=== PATIENT | male | born 1950 | race Caucasian/White ===

== ENCOUNTER 2018-06-14 11:23 | Emergency (ER) | payer BC, OTHER ==
[2018-06-14 11:47] VITALS: BP 149/89
--- NOTE | 2018-06-14 12:12 | UC ---
Lower Extremity/Ankle HPI - HPI Summary HPI Summary: The patient is a 67-year-old male that underwent robotic surgery for his prostate at [facility] on May 07, 2018. When he awoke from surgery his right foot was red and swollen. It is remained red and swollen since the surgery. He denies any calf pain or swelling. He recently clipped his nails and his right great toe is markedly redder than before. He has a history of a crushing injury to his right foot in the mid to early 70s. He has no history of gout. He states his foot does not hurt. - History of Current Complaint Chief Complaint: UCLowerExtremity Stated Complaint: TOE PAIN Time Seen by Provider: 06/14/18 12:00 Hx Obtained From: Patient Onset/Duration: Sudden Onset, Lasting Weeks - 5 to 6 Severity Currently: Severe Pain Intensity: 0 Pain Scale Used: 0-10 Numeric Aggravating Factor(s): Standing, Ambulation Feet (Multiple View): 1 - red/swollen from mid foot to toes, pes planus, hallux valgus - Allergies/Home Medications Allergies/Adverse Reactions: Allergies Allergy/AdvReac Type Severity Reaction Status Date / Time No Known Allergies Allergy Verified 06/14/18 11:47 PMH/Surg Hx/FS Hx/Imm Hx Previously Healthy: Yes - Surgical History Surgical History: Yes Surgery Procedure, Year, and Place: prostate - Family History Known Family History: Positive: Hypertension - Social History Alcohol Use: None Substance Use Type: None Smoking Status (MU): Former Smoker Review of Systems All Other Systems Reviewed And Are Negative: Yes Constitutional: Positive: Negative Skin: Positive: Negative Eyes: Positive: Negative ENT: Positive: Negative Respiratory: Positive: Negative Cardiovascular: Positive: Negative Gastrointestinal: Positive: Negative Genitourinary: Positive: Negative Motor: Positive: Negative Neurovascular: Positive: Negative Musculoskeletal: Positive: Arthralgia, Edema Neurological: Positive: Negative Psychological: Positive: Negative Physical Exam Triage Information Reviewed: Yes Appearance: Well-Appearing, No Pain Distress, Well-Nourished Vital Signs: Initial Vital Signs Temp 98.4 F 06/14/18 11:43 Pulse 87 06/14/18 11:43 Resp 17 06/14/18 11:43 BP 149/89 06/14/18 11:43 Pulse Ox 99 06/14/18 11:43 Vital Signs Reviewed: Yes Eyes: Positive: Conjunctiva Clear ENT: Positive: Hearing grossly normal. Negative: Nasal congestion, Nasal drainage, Muffled voice, Hoarse voice Neck: Positive: Supple, Nontender, No Lymphadenopathy Respiratory: Positive: Lungs clear, Normal breath sounds, No respiratory distress Cardiovascular: Positive: RRR, No Murmur, Pulses Normal Musculoskeletal: Positive: Other: - see image Psychological Exam: Normal Skin Exam: Other - see image Diagnostics - Radiology No standard instances Radiology Interpretation Completed By: Radiologist Summary of Radiographic Findings: #. No radiographic evidence for osteomyelitis. If there is persistent clinical concern. consider MRI or in setting of contraindication to MRI 3 phase bone scan for further. assessment. #. 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 Severe hallux valgus. deformity Lower Extremity Course/Dx - Differential Dx/Diagnosis Provider Diagnosis: Cellulitis of right foot, Arthropathy of right foot Discharge - Sign-Out/Discharge Documenting (check all that apply): Patient Departure All imaging exams completed and their final reports reviewed: Yes - Discharge Plan Condition: Stable Disposition: HOME Prescriptions: Cephalexin CAP* [Keflex CAP*] 500 mg PO QID #28 cap Patient Education Materials: Cellulitis (ED) Referrals: Js Garcia MD [Primary Care Provider] - 3 Days (recheck in 3-4 days) Additional Instructions: if not improving you will need further investigation of your symptoms TO ER FOR NEW OR WORSENING SYMPTOMS - Billing Disposition and Condition Condition: STABLE Disposition: Home
== END 2018-06-14 13:00 | disposition home or self-care (01) ==
LOC: UCEAST 11:23
DX: L03.115 Cellulitis of right lower limb (principal); M12.9 Arthropathy, unspecified; Z87.891 Personal history of nicotine dependence
CPT/HCPCS: 99202; G0463

== ENCOUNTER 2023-12-20 13:28 | Observation (INO) ==
[2023-12-20 14:26] LABS: ABS Lymphocytes 0.6 10^3/uL (1.0-4.8); ABS Monocytes 0.6 10^3/uL (0.0-1.1); ABS Neutrophils 5.2 10^3/uL (1.5-7.6); Eosinophil % 0.1 %; Hematocrit 38.5 % (38-53); Lymphocyte % 9.6 %; Mean Corpuscular Hemoglobin 29.9 pg (27-33); Mean Corpuscular Hgb Conc 33.7 g/dL (31-36); Mean Corpuscular Volume 88.7 fL (80-97); Mean Platelet Volume 8.2 fL (7.5-11.2); Platelet Count 290 10^3/uL (150-450); Red Blood Count 4.34 10^6/uL (4.06-5.63); Red Cell Distribution Width 18.2 % (12-17); White Blood Count 6.5 10^3/uL (3.6-10.2)
[2023-12-20] MEDS: Lactated Ringers 1000 ml BAG 1,000 ML IV ONE (15:14)
[2023-12-20 15:32] LABS: Albumin 3.4 g/dL (3.2-5.2); Albumin/Globulin Ratio 1.2 (1-3); Calcium 9.2 mg/dL (8.6-10.3); Creatinine, Serum 0.72 mg/dL (0.67-1.17); Globulin 2.8 g/dL (2-4); Magnesium 1.6 mg/dL (1.9-2.7); Potassium 4.1 mmol/L (3.5-5.0); Total Protein 6.2 g/dL (6.4-8.9); eGFR CKD-EPI 96.5 (>60)
[2023-12-20] MEDS: Acetaminophen IV 1 GM/100ML 1,000 MG/100 ML BAG IV ONE (15:41)
[2023-12-20 15:52] LABS: High Sensitivity Troponin 1 Hr 61 pg/mL (<20)
[2023-12-20] MEDS: Iohexol 350 (CONTRAST) 500 ML MDV IV ONE (17:07)
[2023-12-20] MEDS: Metoprolol Tartrate 5 mg VIAL 5 ml VIAL (1 mg/ml) IV ONE (18:00)
[2023-12-20] MEDS: Furosemide 20 mg/2 ml IV VIAL IV SLOW PU ONE (20:03)
[2023-12-21] MEDS: Magnesium Sulfate 2 gm BAG 2 GM/50 ML BAG IVPB ONE (01:11)
[2023-12-21 03:19] LABS: INR 1.2 (0.83-1.13)
[2023-12-21 03:29] LABS: ABS Lymphocytes 1.4 10^3/uL (1.0-4.8); ABS Monocytes 0.8 10^3/uL (0.0-1.1); ABS Neutrophils 4.9 10^3/uL (1.5-7.6); ABS Nucleated RBC 0.01 10^3/ul; Eosinophil % 0.2 %; Hematocrit 36.9 % (38-53); Hemoglobin 12.8 g/dL (13.2-16.3); Lymphocyte % 19.4 %; Mean Corpuscular Hemoglobin 30.4 pg (27-33); Mean Corpuscular Hgb Conc 34.6 g/dL (31-36); Mean Corpuscular Volume 87.9 fL (80-97); Mean Platelet Volume 8.5 fL (7.5-11.2); Nucleated Red Blood Cells % 0.2 %/100WBC (0.0-0.8); Platelet Count 299 10^3/uL (150-450); Red Blood Count 4.19 10^6/uL (4.06-5.63); White Blood Count 7.1 10^3/uL (3.6-10.2)
[2023-12-21 03:32] LABS: Albumin 3.6 g/dL (3.2-5.2); Albumin/Globulin Ratio 1.4 (1-3); Calcium 9.4 mg/dL (8.6-10.3); Creatinine, Serum 0.85 mg/dL (0.67-1.17); Globulin 2.6 g/dL (2-4); Magnesium 2.3 mg/dL (1.9-2.7); Potassium 3.7 mmol/L (3.5-5.0); Total Bilirubin 1.1 mg/dL (0.2-1.0); Total Protein 6.2 g/dL (6.4-8.9); eGFR CKD-EPI 91.8 (>60)
[2023-12-21] MEDS: Remdesivir 100 mg Vial 200 MG in NS 0.9% 250 ml 210 ML IV ONE (03:34)
[2023-12-21] MEDS: Lactated Ringers 1000 ml BAG 1,000 ML IV SCH (04:54)
[2023-12-21 06:30] LABS: ABS Lymphocytes 1.1 10^3/uL (1.0-4.8); ABS Monocytes 0.7 10^3/uL (0.0-1.1); ABS Neutrophils 3.9 10^3/uL (1.5-7.6); Eosinophil % 0.3 %; Hematocrit 35.4 % (38-53); Lymphocyte % 19.3 %; Mean Corpuscular Hemoglobin 29.7 pg (27-33); Mean Corpuscular Hgb Conc 33.8 g/dL (31-36); Mean Corpuscular Volume 87.9 fL (80-97); Platelet Count 257 10^3/uL (150-450); Red Blood Count 4.03 10^6/uL (4.06-5.63); Red Cell Distribution Width 17.9 % (12-17); White Blood Count 5.8 10^3/uL (3.6-10.2)
[2023-12-21 06:52] LABS: Calcium 8.8 mg/dL (8.6-10.3); Creatinine, Serum 0.79 mg/dL (0.67-1.17); Potassium 3.4 mmol/L (3.5-5.0); eGFR CKD-EPI 93.8 (>60)
[2023-12-21] MEDS: Nirmatrelvir/Ritonavir 300 mg/100 mg (eGFR > 60) 1 Dose Blister Card PO SCH (07:55)
[2023-12-21] MEDS ORDERED: PROPRANOLOL 160 MG PO SCH (09:00)
[2023-12-21] MEDS ORDERED: Metoprolol Tartrate 5 mg VIAL 5 ml VIAL (1 mg/ml) IV PRN (09:40)
[2023-12-21] MEDS: ABIRATERONE 500 MG PO SCH (10:39)
[2023-12-21] MEDS: Metoprolol Tartrate 5 mg VIAL 5 ml VIAL (1 mg/ml) IV ONE (11:33)
[2023-12-21] MEDS: Acetaminophen IV 1 GM/100ML 1,000 MG/100 ML BAG IV PRN (13:12)
[2023-12-21 14:28] VITALS: BP 101/63
[2023-12-21 15:02] LABS: PSA Screen Ultra Sensitive 0.812 ng/mL (0-4.000)
[2023-12-21 15:07] LABS: Carcinoembryonic Antigen 869.6 ng/mL (0.1-5.0)
[2023-12-21] MEDS: Potassium Chlor 20 meq TAB.ER PO ONE (17:12)
[2023-12-22] MEDS ORDERED: Remdesivir 100 mg Vial 100 MG in NS 0.9% 250 ml 230 ML IV SCH (09:00)
== END 2023-12-21 17:35 | disposition home or self-care (01) ==
LOC: ED 13:28 → EDHOLD 13:28 → SUATTDRO 23:59 → MEDTELE 12-21 01:12
PROVIDERS: ADMIT Internal Medicine; ATTEND Student in an Organized Health Care Education/Training Program

== ENCOUNTER 2024-01-03 10:24 | Inpatient (IN) ==
[2024-01-03] MEDS: Lactated Ringers 1000 ml BAG 1,000 ML IV ONE (10:51)
[2024-01-03 11:07] LABS: Hematocrit 36.8 % (38-53); Hemoglobin 12.6 g/dL (13.2-16.3); Mean Corpuscular Hgb Conc 34.3 g/dL (31-36); Mean Corpuscular Volume 87.5 fL (80-97); Mean Platelet Volume 7.4 fL (7.5-11.2); Platelet Count 481 10^3/uL (150-450); Red Blood Count 4.21 10^6/uL (4.06-5.63); Red Cell Distribution Width 16.7 % (12-17)
[2024-01-03 11:46] LABS: Albumin/Globulin Ratio 1.1 (1-3); C Reactive Protein 113.82 mg/L (<8.01); Calcium 9.1 mg/dL (8.6-10.3); Creatinine, Serum 0.62 mg/dL (0.67-1.17); Globulin 2.7 g/dL (2-4); Magnesium 1.6 mg/dL (1.9-2.7); Potassium 4.1 mmol/L (3.5-5.0); Total Bilirubin 1.7 mg/dL (0.2-1.0); Total Protein 5.7 g/dL (6.4-8.9); eGFR CKD-EPI 100.9 (>60)
[2024-01-03 12:00] LABS: ABS Basophils 0.2 10^3/uL (0.0-0.1); ABS Monocytes 1.7 10^3/uL (0.0-1.1); ABS Neutrophils 11.1 10^3/uL (1.5-7.6); ABS Nucleated RBC 0.01 10^3/ul; Eosinophil % 0.2 %; Lymphocyte % 7.1 %; Nucleated Red Blood Cells % 0.1 %/100WBC (0.0-0.8)
[2024-01-03 13:32] LABS: High Sensitivity Troponin 1 Hr 31 pg/mL (<20)
[2024-01-03] MEDS: Iohexol 350 (CONTRAST) 500 ML MDV IV ONE (13:46)
[2024-01-03] MEDS: Ondansetron 4 mg VIAL 2 MG/ML 2 ml VIAL IV ONE (16:28)
[2024-01-03] MEDS: Magnesium Sulfate 2 gm BAG 2 GM/50 ML BAG IVPB ONE (16:55)
[2024-01-03] MEDS ORDERED: Metoprolol Tartrate 5 mg VIAL 5 ml VIAL (1 mg/ml) IV ONE (17:07)
[2024-01-03 18:15] LABS: TSH Ultra Thyroid Stim Horm 0.06 mcIU/mL (0.34-5.60)
[2024-01-03 19:04] LABS: Free T3 3.44 pg/mL (2.5-3.9)
[2024-01-03 19:05] LABS: Free T4 1.28 ng/dL (0.61-1.12)
[2024-01-03] MEDS ORDERED: Metoprolol Tartrate 5 mg VIAL 5 ml VIAL (1 mg/ml) IV PRN (19:16)
[2024-01-03] MEDS: Metoprolol Tartrate 5 mg VIAL 5 ml VIAL (1 mg/ml) IV ONE (20:54)
[2024-01-03] MEDS: Metoprolol Tartrate 5 mg VIAL 5 ml VIAL (1 mg/ml) IV PRN (20:59)
[2024-01-03] MEDS: Sodium Phosphate ADULT ENEMA 133 ML BTL PR ONE (22:10)
[2024-01-04] MEDS: Enoxaparin 40 MG/0.4 ML SYR SUBCUT ONE (00:22)
[2024-01-04] MEDS: Digoxin IV 0.5 MG/2 ML AMP (0.25 MG/ML) IV SLOW PU ONE (05:32)
[2024-01-04 07:56] LABS: ABS Basophils 0.1 10^3/uL (0.0-0.1); ABS Lymphocytes 0.8 10^3/uL (1.0-4.8); ABS Monocytes 1.2 10^3/uL (0.0-1.1); ABS Neutrophils 12.6 10^3/uL (1.5-7.6); ABS Nucleated RBC 0.01 10^3/ul; Eosinophil % 0.1 %; Hematocrit 38.1 % (38-53); Hemoglobin 12.7 g/dL (13.2-16.3); Lymphocyte % 5.3 %; Mean Corpuscular Hemoglobin 29.5 pg (27-33); Mean Corpuscular Hgb Conc 33.5 g/dL (31-36); Mean Corpuscular Volume 88.2 fL (80-97); Platelet Count 454 10^3/uL (150-450); Red Blood Count 4.32 10^6/uL (4.06-5.63); Red Cell Distribution Width 16.6 % (12-17); White Blood Count 14.8 10^3/uL (3.6-10.2)
[2024-01-04] MEDS: Polyethylene Glycol 3350 17 GM PACKET PO SCH (08:22)
[2024-01-04] MEDS: Senna TAB 8.6 mg TAB PO SCH (08:23)
[2024-01-04] MEDS: ABIRATERONE 500 MG PO SCH (08:24)
[2024-01-04] MEDS: HYDROmorphone 1 MG/1 ML SYRINGE IV SLOW PU PRN (08:24)
[2024-01-04 08:37] LABS: Albumin 2.8 g/dL (3.2-5.2); Albumin/Globulin Ratio 1.1 (1-3); Creatinine, Serum 0.71 mg/dL (0.67-1.17); Globulin 2.5 g/dL (2-4); Potassium 4.3 mmol/L (3.5-5.0); Total Bilirubin 5.9 mg/dL (0.2-1.0); Total Protein 5.3 g/dL (6.4-8.9); eGFR CKD-EPI 96.9 (>60)
[2024-01-04 09:07] LABS: Phosphorus 3.6 mg/dL (2.5-5.0)
[2024-01-04] MEDS: Heparin DRIP 25,000 UNITS BAG 25,000 UNITS/250 ML BAG IV SCH (09:45)
[2024-01-04] MEDS: .Amiodarone 24HR ONLY IV Protocol Order Note IV ONE (10:01)
[2024-01-04] MEDS: Amiodarone 150 mg IVPREMIX 150 MG/100 ML BAG IV ONE (10:01)
[2024-01-04] MEDS: Amiodarone 360 MG IVPREMIX 360 MG/200 ML BAG IV SCH ×2 (10:16→15:58)
[2024-01-04 11:10] LABS: INR 2.8 (0.83-1.13)
[2024-01-04] MEDS: Sulfur Hexaflouride MICROSPHR 25 MG VIAL IV ONE (14:38)
[2024-01-04] MEDS: Ondansetron 4 mg VIAL 2 MG/ML 2 ml VIAL ONE (15:58)
[2024-01-05 05:10] LABS: Activated Partial Thrombo Time 47.3 seconds (26.0-38.0)
[2024-01-05 05:14] LABS: ABS Lymphocytes 0.3 10^3/uL (1.0-4.8); ABS Monocytes 1.1 10^3/uL (0.0-1.1); ABS Neutrophils 12.2 10^3/uL (1.5-7.6); ABS Nucleated RBC 0.01 10^3/ul; Hematocrit 31.6 % (38-53); Hemoglobin 10.9 g/dL (13.2-16.3); Lymphocyte % 2.3 %; Mean Corpuscular Hgb Conc 34.4 g/dL (31-36); Mean Corpuscular Volume 87.3 fL (80-97); Mean Platelet Volume 7.8 fL (7.5-11.2); Platelet Count 408 10^3/uL (150-450); Red Blood Count 3.62 10^6/uL (4.06-5.63); Red Cell Distribution Width 16.6 % (12-17); White Blood Count 13.7 10^3/uL (3.6-10.2)
[2024-01-05 05:25] LABS: Albumin 2.5 g/dL (3.2-5.2); Albumin/Globulin Ratio 1.1 (1-3); Calcium 8.4 mg/dL (8.6-10.3); Creatinine, Serum 0.69 mg/dL (0.67-1.17); Globulin 2.3 g/dL (2-4); Magnesium 1.8 mg/dL (1.9-2.7); Potassium 4.1 mmol/L (3.5-5.0); Total Protein 4.8 g/dL (6.4-8.9); eGFR CKD-EPI 97.7 (>60)
[2024-01-05 07:19] LABS: INR 2.45 (0.83-1.13)
[2024-01-05] MEDS: Heparin DRIP 25,000 UNITS BAG 25,000 UNITS/250 ML BAG IV SCH (08:26)
[2024-01-05] MEDS: Heparin 5000 UNITS/ML 1 mL VIAL IV SCH (14:36)
[2024-01-05] MEDS: Amiodarone 400 mg TAB PO SCH (19:43)
[2024-01-06] MEDS ORDERED: Amiodarone 400 mg TAB PO SCH (09:00)
[2024-01-06] MEDS: Magnesium Sulfate 2 gm BAG 2 GM/50 ML BAG IVPB ONE (10:33)
[2024-01-06] MEDS: Ondansetron 4 mg VIAL 2 MG/ML 2 ml VIAL IV PRN (11:55)
[2024-01-06 18:47] LABS: ABS Basophils 0.1 10^3/uL (0.0-0.1); ABS Eosinophils 0.1 10^3/uL (0.0-0.5); ABS Lymphocytes 0.4 10^3/uL (1.0-4.8); ABS Monocytes 1.2 10^3/uL (0.0-1.1); ABS Neutrophils 12.4 10^3/uL (1.5-7.6); Eosinophil % 0.4 %; Hematocrit 32.1 % (38-53); Hemoglobin 10.8 g/dL (13.2-16.3); Lymphocyte % 2.5 %; Mean Corpuscular Hemoglobin 29.7 pg (27-33); Mean Corpuscular Hgb Conc 33.7 g/dL (31-36); Mean Corpuscular Volume 88.1 fL (80-97); Mean Platelet Volume 7.7 fL (7.5-11.2); Platelet Count 419 10^3/uL (150-450); Red Blood Count 3.64 10^6/uL (4.06-5.63); Red Cell Distribution Width 16.6 % (12-17); White Blood Count 14.1 10^3/uL (3.6-10.2)
[2024-01-06 19:36] LABS: Albumin 2.5 g/dL (3.2-5.2); Creatinine, Serum 1.58 mg/dL (0.67-1.17); Globulin 2.4 g/dL (2-4); Magnesium 2.4 mg/dL (1.9-2.7); Potassium 4.4 mmol/L (3.5-5.0); Total Bilirubin 2.7 mg/dL (0.2-1.0); Total Protein 4.9 g/dL (6.4-8.9); eGFR CKD-EPI 45.9 (>60)
[2024-01-06] MEDS: Pantoprazole VIAL 40 MG VIAL IV ONE (22:49)
[2024-01-07 06:46] LABS: ABS Basophils 0.1 10^3/uL (0.0-0.1); ABS Lymphocytes 0.3 10^3/uL (1.0-4.8); ABS Monocytes 0.9 10^3/uL (0.0-1.1); ABS Neutrophils 11.9 10^3/uL (1.5-7.6); Eosinophil % 0.3 %; Hemoglobin 11.1 g/dL (13.2-16.3); Lymphocyte % 2.2 %; Mean Corpuscular Hemoglobin 30.1 pg (27-33); Mean Corpuscular Hgb Conc 34.5 g/dL (31-36); Mean Corpuscular Volume 87.1 fL (80-97); Mean Platelet Volume 7.5 fL (7.5-11.2); Platelet Count 411 10^3/uL (150-450); Red Blood Count 3.67 10^6/uL (4.06-5.63); Red Cell Distribution Width 16.4 % (12-17); White Blood Count 13.2 10^3/uL (3.6-10.2)
[2024-01-07 08:36] LABS: ALT 35 U/L (7-52); AST 84 U/L (13-39); Albumin < 1.7 g/dL (3.2-5.2); Albumin/Globulin Ratio 0.5 (1-3); Alkaline Phosphatase 312 U/L (35-149); Anion Gap 13 mmol/L (2-16); Blood Urea Nitrogen 28 mg/dL (6-24); CO2 Carbon Dioxide 24 mmol/L (22-32); Calcium 9.2 mg/dL (8.6-10.3); Chloride 92 mmol/L (101-111); Creatinine, Serum 2.35 mg/dL (0.67-1.17); Globulin 3.2 g/dL (2-4); Glucose 116 mg/dL (70-100); Magnesium 2.4 mg/dL (1.9-2.7); Potassium 4.7 mmol/L (3.5-5.0); Sodium 129 mmol/L (135-145); Total Bilirubin 2.6 mg/dL (0.2-1.0); Total Protein 4.9 g/dL (6.4-8.9); eGFR CKD-EPI 28.5 (>60)
[2024-01-07 09:40] LABS: Uric Acid 5.8 mg/dL (4.4-7.6)
[2024-01-07 13:58] LABS: Urine Appearance Extra Turbid; Urine Bilirubin 1+ (Negative); Urine Blood Trace (Negative); Urine Color Dark-Yellow; Urine Glucose Trace (Negative); Urine Ketones Negative (Negative); Urine Nitrite Negative (Negative); Urine Protein 1+ (>=30 mg/dL) (Negative); Urine Specific Gravity 1.018 (1.002-1.030); Urine Urobilinogen 2+ (Negative); Urine pH 5.5 (5.0-8.0)
[2024-01-07 14:06] LABS: Urine Bacteria Absent /HPF (Absent); Urine Red Blood Cell Trace(0-2/hpf) /HPF (0-Trace); Urine Squamous Epithelial Cell Present /HPF (Absent); Urine White Blood Cell Trace(0-5/hpf) /HPF (0-Trace)
[2024-01-07] MEDS: PALONOSETRON HCL 0.05 MG/ML (0.25 MG) SYRINGE (0.05 MG/ML) IV ONE (14:50)
[2024-01-07] MEDS: APREPITANT 130 MG in Premix IV 0 ML IV ONE (14:57)
[2024-01-07] MEDS: Dexamethasone IV 4 MG/ML VIAL 1 ml VIAL IV SLOW PU ONE (15:03)
[2024-01-07] MEDS: ETOPOSIDE IVPB SCH (15:13)
[2024-01-07] MEDS: NS 0.9% IVPB SCH (15:13)
[2024-01-07] MEDS: CARBOPLATIN IVPB ONE (15:59)
[2024-01-07] MEDS: NS 0.9% IVPB ONE (15:59)
[2024-01-07] MEDS: NS 0.9% 1000 ml BAG 1,000 ML IV SCH (17:14)
[2024-01-07 21:13] LABS: Calcium 8.8 mg/dL (8.6-10.3); Creatinine, Serum 2.91 mg/dL (0.67-1.17); Potassium 4.7 mmol/L (3.5-5.0); Uric Acid 6.4 mg/dL (4.4-7.6); eGFR CKD-EPI 22.1 (>60)
[2024-01-08 03:52] LABS: Calcium 8.9 mg/dL (8.6-10.3); Creatinine, Serum 3.08 mg/dL (0.67-1.17); Phosphorus 5.2 mg/dL (2.5-5.0); Potassium 4.9 mmol/L (3.5-5.0); Uric Acid 7.3 mg/dL (4.4-7.6); eGFR CKD-EPI 20.6 (>60)
[2024-01-08 06:50] LABS: ABS Lymphocytes 0.1 10^3/uL (1.0-4.8); ABS Monocytes 0.3 10^3/uL (0.0-1.1); ABS Neutrophils 8.3 10^3/uL (1.5-7.6); Hematocrit 28.9 % (38-53); Lymphocyte % 1.1 %; Mean Corpuscular Hemoglobin 30.2 pg (27-33); Mean Corpuscular Hgb Conc 34.8 g/dL (31-36); Mean Corpuscular Volume 86.9 fL (80-97); Mean Platelet Volume 7.4 fL (7.5-11.2); Platelet Count 386 10^3/uL (150-450); Red Blood Count 3.32 10^6/uL (4.06-5.63); Red Cell Distribution Width 16.2 % (12-17); White Blood Count 8.7 10^3/uL (3.6-10.2)
[2024-01-08 07:41] LABS: Phosphorus 5.2 mg/dL (2.5-5.0); Uric Acid 7.9 mg/dL (4.4-7.6)
[2024-01-08 07:43] LABS: Albumin 2.1 g/dL (3.2-5.2); Albumin/Globulin Ratio 0.9 (1-3); Calcium 8.7 mg/dL (8.6-10.3); Creatinine, Serum 3.13 mg/dL (0.67-1.17); Globulin 2.4 g/dL (2-4); Total Bilirubin 1.9 mg/dL (0.2-1.0); Total Protein 4.5 g/dL (6.4-8.9); eGFR CKD-EPI 20.2 (>60)
[2024-01-08] MEDS ORDERED: Rasburicase 1.5 MG VIAL(NF) IVPB ONE (09:39)
[2024-01-08] MEDS: Dexamethasone IV 4 MG/ML VIAL 1 ml VIAL IV SLOW PU SCH (10:21)
[2024-01-08] MEDS: Rasburicase 3 MG in NS 0.9% 50 ML 48 ML IVPB ONE (12:14)
[2024-01-08 19:38] LABS: Calcium 8.7 mg/dL (8.6-10.3); Creatinine, Serum 3.21 mg/dL (0.67-1.17); Phosphorus 4.6 mg/dL (2.5-5.0); Potassium 4.3 mmol/L (3.5-5.0); Uric Acid 2.6 mg/dL (4.4-7.6); eGFR CKD-EPI 19.6 (>60)
[2024-01-08] MEDS: Senna TAB 8.6 mg TAB PO SCH (20:32)
[2024-01-08 22:45] LABS: Calcium 8.7 mg/dL (8.6-10.3); Creatinine, Serum 3.24 mg/dL (0.67-1.17); Phosphorus 4.4 mg/dL (2.5-5.0); Potassium 4.5 mmol/L (3.5-5.0); Uric Acid 3.3 mg/dL (4.4-7.6); eGFR CKD-EPI 19.4 (>60)
[2024-01-09 06:41] LABS: Calcium 8.4 mg/dL (8.6-10.3); Creatinine, Serum 3.2 mg/dL (0.67-1.17); Phosphorus 4.8 mg/dL (2.5-5.0); Potassium 4.5 mmol/L (3.5-5.0); Uric Acid 3.1 mg/dL (4.4-7.6); eGFR CKD-EPI 19.7 (>60)
[2024-01-09 09:19] LABS: Calcium 8.3 mg/dL (8.6-10.3); Creatinine, Serum 3.25 mg/dL (0.67-1.17); Potassium 4.5 mmol/L (3.5-5.0); Uric Acid 3.1 mg/dL (4.4-7.6); eGFR CKD-EPI 19.3 (>60)
[2024-01-09] MEDS: ETOPOSIDE IVPB SCH (14:09)
[2024-01-09] MEDS: NS 0.9% IVPB SCH (14:09)
[2024-01-09 15:13] LABS: Anion Gap 11 mmol/L (2-16); Blood Urea Nitrogen 80 mg/dL (6-24); CO2 Carbon Dioxide 20 mmol/L (22-32); Calcium 8.4 mg/dL (8.6-10.3); Chloride 98 mmol/L (101-111); Creatinine, Serum 3.24 mg/dL (0.67-1.17); Glucose 151 mg/dL (70-100); Sodium 129 mmol/L (135-145); Uric Acid 2.9 mg/dL (4.4-7.6); eGFR CKD-EPI 19.4 (>60)
[2024-01-09 17:03] LABS: Phosphorus 4.6 mg/dL (2.5-5.0); Potassium Redraw 4.4 mmol/L (3.5-5.0)
[2024-01-10 05:47] LABS: ABS Lymphocytes 0.1 10^3/uL (1.0-4.8); ABS Monocytes 0.1 10^3/uL (0.0-1.1); ABS Neutrophils 9.7 10^3/uL (1.5-7.6); Hematocrit 27.6 % (38-53); Hemoglobin 9.7 g/dL (13.2-16.3); Lymphocyte % 1.1 %; Mean Corpuscular Hemoglobin 30.3 pg (27-33); Mean Corpuscular Hgb Conc 35.1 g/dL (31-36); Mean Corpuscular Volume 86.3 fL (80-97); Mean Platelet Volume 7.4 fL (7.5-11.2); Platelet Count 356 10^3/uL (150-450); Red Cell Distribution Width 16.6 % (12-17); White Blood Count 9.9 10^3/uL (3.6-10.2)
[2024-01-10 07:35] LABS: Albumin 2.1 g/dL (3.2-5.2); Creatinine, Serum 3.32 mg/dL (0.67-1.17); Globulin 2.2 g/dL (2-4); Potassium 4.7 mmol/L (3.5-5.0); Total Bilirubin 0.9 mg/dL (0.2-1.0); Total Protein 4.3 g/dL (6.4-8.9); eGFR CKD-EPI 18.8 (>60)
[2024-01-10] MEDS: Famotidine SUSP ORALSYR 8 MG/ML PO SCH (21:55)
[2024-01-11 08:27] LABS: ABS Lymphocytes 0.2 10^3/uL (1.0-4.8); ABS Neutrophils 6.5 10^3/uL (1.5-7.6); Eosinophil % 0.3 %; Hematocrit 31.7 % (38-53); Hemoglobin 10.8 g/dL (13.2-16.3); Lymphocyte % 2.6 %; Mean Corpuscular Hemoglobin 29.6 pg (27-33); Mean Corpuscular Hgb Conc 34.1 g/dL (31-36); Mean Corpuscular Volume 86.6 fL (80-97); Mean Platelet Volume 7.1 fL (7.5-11.2); Platelet Count 312 10^3/uL (150-450); Red Blood Count 3.66 10^6/uL (4.06-5.63); Red Cell Distribution Width 16.8 % (12-17); White Blood Count 6.7 10^3/uL (3.6-10.2)
[2024-01-11 09:19] LABS: Albumin 2.2 g/dL (3.2-5.2); Calcium 8.1 mg/dL (8.6-10.3); Creatinine, Serum 3.21 mg/dL (0.67-1.17); Globulin 2.3 g/dL (2-4); Potassium 4.2 mmol/L (3.5-5.0); Total Bilirubin 0.9 mg/dL (0.2-1.0); Total Protein 4.5 g/dL (6.4-8.9); eGFR CKD-EPI 19.6 (>60)
[2024-01-12] MEDS: Digoxin IV 0.5 MG/2 ML AMP (0.25 MG/ML) IV SLOW PU ONE (01:17)
[2024-01-12 06:18] LABS: ABS Lymphocytes 0.2 10^3/uL (1.0-4.8); ABS Neutrophils 4.8 10^3/uL (1.5-7.6); Eosinophil % 0.6 %; Hematocrit 28.4 % (38-53); Hemoglobin 9.9 g/dL (13.2-16.3); Mean Corpuscular Hemoglobin 30.2 pg (27-33); Mean Corpuscular Volume 86.2 fL (80-97); Mean Platelet Volume 7.2 fL (7.5-11.2); Nucleated Red Blood Cells % 0.1 %/100WBC (0.0-0.8); Platelet Count 217 10^3/uL (150-450); Red Cell Distribution Width 16.7 % (12-17); White Blood Count 5.1 10^3/uL (3.6-10.2)
[2024-01-12 07:32] LABS: Albumin 2.1 g/dL (3.2-5.2); Albumin/Globulin Ratio 1.1 (1-3); Calcium 8.1 mg/dL (8.6-10.3); Creatinine, Serum 2.87 mg/dL (0.67-1.17); Potassium 3.6 mmol/L (3.5-5.0); Total Bilirubin 0.8 mg/dL (0.2-1.0); Total Protein 4.1 g/dL (6.4-8.9); eGFR CKD-EPI 22.4 (>60)
[2024-01-12] MEDS: Metoprolol Tartrate 5 mg VIAL 5 ml VIAL (1 mg/ml) IV ONE (09:09)
[2024-01-12 13:43] LABS: Magnesium 1.8 mg/dL (1.9-2.7)
[2024-01-13 06:01] LABS: Hematocrit 28.6 % (38-53); Hemoglobin 9.8 g/dL (13.2-16.3); Mean Corpuscular Hemoglobin 29.7 pg (27-33); Mean Corpuscular Hgb Conc 34.2 g/dL (31-36); Mean Corpuscular Volume 86.6 fL (80-97); Mean Platelet Volume 7.8 fL (7.5-11.2); Platelet Count 161 10^3/uL (150-450); Red Cell Distribution Width 16.4 % (12-17); White Blood Count 3.3 10^3/uL (3.6-10.2)
[2024-01-13 06:31] LABS: ABS Lymphocytes 0.2 10^3/uL (1.0-4.8); Eosinophil % 0.6 %; Lymphocyte % 6.2 %; RBC Morphology Normal (Normal)
[2024-01-13 07:09] LABS: Albumin 2.2 g/dL (3.2-5.2); Albumin/Globulin Ratio 1.2 (1-3); Calcium 7.9 mg/dL (8.6-10.3); Creatinine, Serum 2.34 mg/dL (0.67-1.17); Globulin 1.9 g/dL (2-4); Potassium 2.8 mmol/L (3.5-5.0); Total Bilirubin 0.8 mg/dL (0.2-1.0); Total Protein 4.1 g/dL (6.4-8.9); eGFR CKD-EPI 28.7 (>60)
[2024-01-13 09:00] LABS: Magnesium 1.7 mg/dL (1.9-2.7)
[2024-01-13] MEDS: Magnesium Sulfate 2 gm BAG 2 GM/50 ML BAG IVPB ONE (09:49)
[2024-01-13] MEDS: KCL 20 MEQ/100 ML IVPREMIX 20 MEQ/100 ML BAG IV SCH (09:50)
[2024-01-13] MEDS: fentaNYL PATCH 12 MCG/HR 1 PATCH TRANSDERM SCH (10:04)
[2024-01-13] MEDS: fentaNYL Patch Check Q Shift NOTE FOLLOW UP SCH (18:53)
[2024-01-14 03:15] LABS: Hematocrit 27.6 % (38-53); Hemoglobin 9.3 g/dL (13.2-16.3); Mean Corpuscular Hemoglobin 29.2 pg (27-33); Mean Corpuscular Hgb Conc 33.8 g/dL (31-36); Mean Corpuscular Volume 86.5 fL (80-97); Mean Platelet Volume 7.7 fL (7.5-11.2); Platelet Count 106 10^3/uL (150-450); Red Blood Count 3.19 10^6/uL (4.06-5.63); Red Cell Distribution Width 16.5 % (12-17); White Blood Count 1.4 10^3/uL (3.6-10.2)
[2024-01-14 03:50] LABS: Calcium 7.6 mg/dL (8.6-10.3); Creatinine, Serum 2.08 mg/dL (0.67-1.17); Magnesium 1.9 mg/dL (1.9-2.7); Potassium 2.9 mmol/L (3.5-5.0)
[2024-01-14 03:56] LABS: ABS Lymphocytes 0.2 10^3/uL (1.0-4.8); ABS Neutrophils 1.1 10^3/uL (1.5-7.6); Lymphocyte % 13.4 %; RBC Morphology Normal (Normal)
[2024-01-14] MEDS: Potassium Chlor 20 meq TAB.ER PO SCH (09:08)
[2024-01-14] MEDS: Potassium Chloride LIQUID 20 MEQ/15 ML LIQUID PO SCH (12:38)
[2024-01-15 07:08] LABS: Calcium 7.9 mg/dL (8.6-10.3); Creatinine, Serum 1.73 mg/dL (0.67-1.17); Magnesium 1.7 mg/dL (1.9-2.7); Potassium 3.1 mmol/L (3.5-5.0); eGFR CKD-EPI 41.2 (>60)
[2024-01-15 07:15] LABS: ABS Lymphocytes 0.1 10^3/uL (1.0-4.8); ABS Neutrophils 0.1 10^3/uL (1.5-7.6); ABS Nucleated RBC 0.01 10^3/ul; Eosinophil % 1.4 %; Hematocrit 29.1 % (38-53); Hemoglobin 9.9 g/dL (13.2-16.3); Lymphocyte % 55.3 %; Mean Corpuscular Hemoglobin 29.2 pg (27-33); Mean Corpuscular Hgb Conc 33.9 g/dL (31-36); Mean Corpuscular Volume 86.1 fL (80-97); Mean Platelet Volume 7.6 fL (7.5-11.2); Nucleated Red Blood Cells % 4.2 %/100WBC (0.0-0.8); Platelet Count 56 10^3/uL (150-450); RBC Morphology Normal (Normal); Red Blood Count 3.38 10^6/uL (4.06-5.63); Red Cell Distribution Width 15.9 % (12-17); White Blood Count 0.3 10^3/uL (3.6-10.2)
[2024-01-15] MEDS: Potassium Chloride LIQUID 20 MEQ/15 ML LIQUID PO SCH (09:21)
[2024-01-15] MEDS: Magnesium Sulfate 2 gm BAG 2 GM/50 ML BAG IVPB ONE (10:06)
[2024-01-15] MEDS: KCL 20 MEQ/100 ML IVPREMIX 20 MEQ/100 ML BAG IV SCH (11:54)
[2024-01-15] MEDS: Pantoprazole VIAL 40 MG VIAL IV SCH (11:54)
[2024-01-15] MEDS: Lactated Ringers 1000 ml BAG 1,000 ML IV SCH (17:45)
[2024-01-16 07:08] LABS: Calcium 7.5 mg/dL (8.6-10.3); Creatinine, Serum 1.55 mg/dL (0.67-1.17); Magnesium 1.7 mg/dL (1.9-2.7)
[2024-01-16 07:27] LABS: Hematocrit 27.6 % (38-53); Hemoglobin 9.4 g/dL (13.2-16.3); Mean Corpuscular Hemoglobin 29.1 pg (27-33); Mean Corpuscular Volume 85.6 fL (80-97); Mean Platelet Volume 7.6 fL (7.5-11.2); Platelet Count 27 10^3/uL (150-450); Red Blood Count 3.22 10^6/uL (4.06-5.63); White Blood Count 0.2 10^3/uL (3.6-10.2)
[2024-01-16] MEDS ORDERED: KCL 20 MEQ/100 ML IVPREMIX 20 MEQ/100 ML BAG IV SCH (08:00)
[2024-01-16 08:28] LABS: ABS Lymphocytes 0.1 10^3/uL (1.0-4.8); Eosinophil % 1.2 %; Lymphocyte % 74.6 %; Nucleated Red Blood Cells % 0.4 %/100WBC (0.0-0.8)
[2024-01-16] MEDS: Cefepime 2 GM in Dextrose 2 GM/50 ML BAG IV SCH (09:08)
[2024-01-16] MEDS: Magnesium Sulfate 2 gm BAG 2 GM/50 ML BAG IVPB ONE (09:19)
[2024-01-16] MEDS: KCL 20 MEQ/100 ML IVPREMIX 20 MEQ/100 ML BAG IV SCH (10:13)
[2024-01-16] MEDS: Scopolamine 1 mg/72hr PATCH TRANSDERM SCH (10:34)
[2024-01-16 19:59] LABS: Platelet Count 15 10^3/uL (150-450)
[2024-01-17 01:18] LABS: Urine Appearance Clear; Urine Bilirubin Negative (Negative); Urine Blood 2+ (Negative); Urine Color Yellow; Urine Glucose Negative (Negative); Urine Ketones 1+ (Negative); Urine Nitrite 2+ (Negative); Urine Protein 2+ (>=100 mg/dL) (Negative); Urine Specific Gravity 1.014 (1.002-1.030); Urine Urobilinogen Negative (Negative); Urine pH 7.5 (5.0-8.0)
[2024-01-17 01:24] LABS: Urine Bacteria Absent /HPF (Absent); Urine Red Blood Cell 1+(3-5/hpf) /HPF (0-Trace); Urine Squamous Epithelial Cell Present /HPF (Absent); Urine White Blood Cell 1+(6-10/hpf) /HPF (0-Trace)
[2024-01-17 06:53] LABS: Calcium 7.5 mg/dL (8.6-10.3); Creatinine, Serum 1.74 mg/dL (0.67-1.17); Magnesium 1.9 mg/dL (1.9-2.7); Potassium 2.6 mmol/L (3.5-5.0); eGFR CKD-EPI 40.9 (>60)
[2024-01-17 07:10] LABS: Hematocrit 25.3 % (38-53); Hemoglobin 8.8 g/dL (13.2-16.3); Mean Corpuscular Hemoglobin 29.6 pg (27-33); Mean Corpuscular Hgb Conc 34.8 g/dL (31-36); Mean Corpuscular Volume 84.9 fL (80-97); Red Blood Count 2.98 10^6/uL (4.06-5.63); Red Cell Distribution Width 15.7 % (12-17); White Blood Count 0.2 10^3/uL (3.6-10.2)
[2024-01-17 07:28] LABS: Mean Platelet Volume 8.3 fL (7.5-11.2); Platelet Count 25 10^3/uL (150-450)
[2024-01-17 07:30] LABS: ABS Lymphocytes 0.1 10^3/uL (1.0-4.8); Eosinophil % 0.9 %; Lymphocyte % 69.6 %
[2024-01-17] MEDS: KCL 20 MEQ/100 ML IVPREMIX 20 MEQ/100 ML BAG IV SCH ×2 (07:34→22:38)
[2024-01-17] MEDS: NS 0.45% 1000 ml BAG 1,000 ML IV SCH (07:37)
[2024-01-17] MEDS: Magnesium Sulfate 2 gm BAG 2 GM/50 ML BAG IVPB ONE (17:10)
[2024-01-17] MEDS: Potassium Chloride LIQUID 20 MEQ/15 ML LIQUID PO ONE (17:10)
[2024-01-17 19:40] LABS: Calcium 7.5 mg/dL (8.6-10.3); Creatinine, Serum 1.78 mg/dL (0.67-1.17); eGFR CKD-EPI 39.8 (>60)
[2024-01-17 21:02] LABS: Mean Platelet Volume 7.8 fL (7.5-11.2); Platelet Count 35 10^3/uL (150-450)
[2024-01-18 06:33] LABS: Calcium 7.6 mg/dL (8.6-10.3); Creatinine, Serum 1.93 mg/dL (0.67-1.17); Potassium 3.4 mmol/L (3.5-5.0); eGFR CKD-EPI 36.1 (>60)
[2024-01-18 06:47] LABS: Hematocrit 23.7 % (38-53); Hemoglobin 7.7 g/dL (13.2-16.3); Mean Corpuscular Hemoglobin 28.5 pg (27-33); Mean Corpuscular Hgb Conc 32.4 g/dL (31-36); Mean Corpuscular Volume 87.9 fL (80-97); Red Cell Distribution Width 15.9 % (12-17); White Blood Count 0.3 10^3/uL (3.6-10.2)
[2024-01-18 06:49] LABS: TSH Ultra Thyroid Stim Horm 1.92 mcIU/mL (0.34-5.60)
[2024-01-18 06:50] LABS: Free T3 2.18 pg/mL (2.5-3.9)
[2024-01-18 06:51] LABS: Free T4 0.78 ng/dL (0.61-1.12)
[2024-01-18 07:54] LABS: Magnesium 2.1 mg/dL (1.9-2.7)
[2024-01-18 08:01] LABS: ABS Lymphocytes 0.2 10^3/uL (1.0-4.8); Mean Platelet Volume 8.7 fL (7.5-11.2); Nucleated Red Blood Cells % 0.9 %/100WBC (0.0-0.8); Platelet Count 31 10^3/uL (150-450)
[2024-01-18] MEDS: KCL 20 MEQ/100 ML IVPREMIX 20 MEQ/100 ML BAG IV SCH (12:01)
[2024-01-18] MEDS: Potassium Chloride LIQUID 20 MEQ/15 ML LIQUID PO ONE (12:37)
[2024-01-18] MEDS ORDERED: Potassium Chloride LIQUID 20 MEQ/15 ML LIQUID PO ONE (14:00)
[2024-01-18] MEDS ORDERED: Ondansetron 4 mg VIAL 2 MG/ML 2 ml VIAL IV PRN (15:47)
[2024-01-18] MEDS: Nystatin SUSPENSION 100,000 UNITS/ML UDC PO SCH (16:41)
[2024-01-18] MEDS: Fluconazole 400 MG IVPREMIX 400 MG/200 ML BAG IVPB ONE (17:36)
[2024-01-18] MEDS: Digoxin IV 0.5 MG/2 ML AMP (0.25 MG/ML) IV SLOW PU ONE (22:25)
[2024-01-19 07:04] LABS: Calcium 7.1 mg/dL (8.6-10.3); Magnesium 1.6 mg/dL (1.9-2.7); Potassium 3.3 mmol/L (3.5-5.0); eGFR CKD-EPI 34.6 (>60)
[2024-01-19] MEDS: KCL 20 MEQ/100 ML IVPREMIX 20 MEQ/100 ML BAG IV SCH (07:37)
[2024-01-19] MEDS: Magnesium Sulf 4 GM/100 ML IV 4,000 MG/100 ML BAG IVPB ONE (08:13)
[2024-01-19 09:08] LABS: Hematocrit 19.8 % (38-53); Hemoglobin 6.9 g/dL (13.2-16.3); Mean Corpuscular Hemoglobin 29.6 pg (27-33); Mean Corpuscular Volume 84.5 fL (80-97); Red Blood Count 2.34 10^6/uL (4.06-5.63); Red Cell Distribution Width 15.8 % (12-17); White Blood Count 0.4 10^3/uL (3.6-10.2)
[2024-01-19 09:15] LABS: Mean Platelet Volume 8.8 fL (7.5-11.2); Platelet Count 24 10^3/uL (150-450)
[2024-01-19 09:17] LABS: ABS Lymphocytes 0.3 10^3/uL (1.0-4.8); ABS Neutrophils 0.1 10^3/uL (1.5-7.6); Eosinophil % 1.5 %; Nucleated Red Blood Cells % 0.8 %/100WBC (0.0-0.8)
[2024-01-19] MEDS: Fluconazole 200 MG IVPREMIX 200 MG/100 ML BAG IVPB SCH (17:15)
[2024-01-19] MEDS: cefTRIAXone 1 gm/50 mL D5W 1 GM/50 ML BAG IV SCH (22:14)
[2024-01-20 06:44] LABS: Calcium 7.5 mg/dL (8.6-10.3); Creatinine, Serum 1.77 mg/dL (0.67-1.17); Magnesium 1.9 mg/dL (1.9-2.7); Potassium 3.1 mmol/L (3.5-5.0); eGFR CKD-EPI 40.1 (>60)
[2024-01-20 08:25] LABS: Hemoglobin 9.1 g/dL (13.2-16.3); Mean Corpuscular Hemoglobin 28.9 pg (27-33); Mean Corpuscular Hgb Conc 33.6 g/dL (31-36); Red Blood Count 3.14 10^6/uL (4.06-5.63); Red Cell Distribution Width 15.9 % (12-17); White Blood Count 0.8 10^3/uL (3.6-10.2)
[2024-01-20] MEDS: Potassium Chloride LIQUID 20 MEQ/15 ML LIQUID PO ONE ×2 (09:25→15:15)
[2024-01-20 09:36] LABS: ABS Neutrophils 0.4 10^3/uL (1.5-7.6); Mean Platelet Volume 8.7 fL (7.5-11.2); Platelet Count 21 10^3/uL (150-450)
[2024-01-20 10:25] LABS: ABS Lymphocytes 0.4 10^3/uL (1.0-4.8); ABS Monocytes 0.1 10^3/uL (0.0-1.1); ABS Nucleated RBC 0.01 10^3/ul; Eosinophil % 0.4 %; Lymphocyte % 44.6 %; Nucleated Red Blood Cells % 1.5 %/100WBC (0.0-0.8)
[2024-01-20 17:38] VITALS: BP 120/53
[2024-01-20] MEDS: Acetaminophen IV 1 GM/100ML 1,000 MG/100 ML BAG IV PRN (18:05)
[2024-01-20] MEDS ORDERED: Atropine 1% (ORAL/SL) 15 ML BTL SL PRN (18:33)
[2024-01-20] MEDS ORDERED: Lorazepam PYXIS KEY PRN (18:37)
[2024-01-21] MEDS: Morphine 2 MG/ML SYRINGE IV PRN (06:07)
[2024-01-21] MEDS: LORazepam 2 mg VIAL 1 ml IV PUSH PRN (12:09)
[2024-01-21] MEDS: fentaNYL PATCH 12 MCG/HR 1 PATCH TRANSDERM SCH (15:41)
[2024-01-21] MEDS ORDERED: fentaNYL Patch Check Q Shift NOTE FOLLOW UP SCH (19:00)
== END 2024-01-21 18:32 | disposition expired | DRG 308 ==
LOC: ED 10:24 → SUATTDRO 19:39 → EDHOLD 19:39 → ICU 21:10 → MEDTELE 01-06 00:48
PROVIDERS: ADMIT Internal Medicine Pulmonary Disease; ATTEND Student in an Organized Health Care Education/Training Program